=== PATIENT | female | born 1980 | race Caucasian/White ===

== ENCOUNTER 2016-07-04 00:30 | Inpatient (IN) ==
[2016-07-04] MEDS ORDERED: ASPIRIN PO ONE (01:31)
[2016-07-04] MEDS ORDERED: DUONEB (A & A) INH ONE (04:25)
[2016-07-04] MEDS ORDERED: ROCEPHIN 2 GM/NS 2 GM/50 ML IVPB IV ONE (04:26)
[2016-07-04] MEDS ORDERED: ZITHROMAX 500 MG/NS 500 MG/250 ML IVPB IV ONE (04:27)
[2016-07-04 06:08] LABS: MANUAL DIFF NEEDED? NO
[2016-07-04 06:14] LABS: BASO% 0.1 % (0.0-0.8); EOS# 0.05 X1000 (0.0-0.7); EOS% 0.5 % (0.0-10.0); HEMATOCRIT 35.4 % (37.0-47.0); HEMOGLOBIN 11.2 g/dL (12.0-16.0); LYMPH# 1.87 X1000 (1.2-3.4); LYMPH% 19.6 % (20.5-51.1); MCHC 31.6 g/dL (33-37); MCV 88.5 FL (81-99); MONO# 0.59 X1000 (0.11-0.59); MONO% 6.2 % (1.7-9.3); MPV 12.1 FL (7.4-10.4); NEUT% 73.6 % (42.2-75.2); PLT 191 X1000 (130-400)
[2016-07-04 06:39] LABS: AGAP 15; ALBUMIN 3.6 g/dL (3.5-5.0); ALKALINE PHOSPHATASE 114 U/L (32-104); BUN 10 mg/dL (8-22); CALCIUM 8.7 mg/dL (8.8-10.2); CHLORIDE 101 mmol/L (98-107); COSMO 276; GOT 19 U/L (10-30); GPT 15 U/L (10-36); POTASSIUM 3.1 mmol/L (3.5-5.1); SODIUM 139 mmol/L (136-145); TCO2 23 mmol/L (25-35); TOTAL BILIRUBIN 0.54 mg/dL (0.20-1.00); TOTAL PROTEIN 7.1 g/dL (6.3-8.3)
[2016-07-04] MEDS ORDERED: NS + KCL 20 MEQ 1,000 ML IV ONE (09:10)
--- NOTE | 2016-07-04 09:47 | Diag Imaging Result Document ---
PROCEDURE NAME: CHEST-2 VIEWS - 07/04/2016 FRONTAL AND LATERAL CHEST, TWO VIEWS: COMPARISON: 11/29/2014. FINDINGS: There is a small infiltrate in the right base. The left lung is well expanded and clear. The heart is not enlarged. The vessels are not distended. No pleural effusions. No free air beneath the diaphragm. IMPRESSION: Right basilar pneumonia.
--- NOTE | 2016-07-04 11:54 | HISTORY AND PHYSICAL ---
PRIMARY CARE PHYSICIAN: Dr. Alfaro. CHIEF COMPLAINT: Chest pain, shortness of breath. HISTORY OF PRESENT ILLNESS: Mrs. Urias is a 36-year-old female with a history of morbid obesity, asthma, peripheral vascular disease, DVTs, degenerative disk disease who presents with multiple weeks of shortness of breath and coughing and gasping for air at night. She reports the symptoms have been going on for at least a month where at night she is constantly coughing and gasping for air. She has intermittent chest pain throughout the day which she reports is midsternal, nonradiating, lasting only a few minutes. She is essentially bedbound and/or she is quite immobile, she states because of her degenerative disk disease and her weight. She is really unable to ambulate. She denies any orthopnea, per se, but she does not lie flat. She does report significant dyspnea with exertion but denies any exertional chest pain. She denies any fevers or chills, and she reports a dry cough. She went to med-surg outpatient clinic yesterday and she reports she had an extensive workup which was negative. She comes back today with more shortness of breath, coughing and gasping. In the ER, a chest x-ray was done, and it showed right lower lobe infiltrate. Lab work was largely unremarkable. She did have some mild hypokalemia and anemia. Her O2 sats have been adequate. She is now going to be admitted for further treatment and evaluation. PAST MEDICAL HISTORY: 1. Peripheral vascular disease status post 2 stents in the right leg and 1 in the left. 2. Fibromyalgia. 3. Degenerative disk disease. 4. Right lower extremity DVT. 5. Asthma. She has been using her inhaler greater than 1-5 times a day. 6. Hypothyroidism. 7. Tachycardia. 8. Depression. 9. GERD. 10.Anxiety. 11.Chronic lower extremity edema. SURGICAL HISTORY: She has had weight loss surgery in the past, cholecystectomy , tonsillectomy. SOCIAL HISTORY: The patient denies tobacco, alcohol, or drug use. She has no children. She is on disability. Her fiance is at the bedside. FAMILY HISTORY: Significant for hypertension and diabetes. REVIEW OF SYSTEMS: A 14-point review of systems was obtained, found to be negative with the exception of the HPI. HOME MEDICATIONS: 1. Albuterol HFA 6.7 g inhaled as needed. 2. Xanax 1 mg b.i.d. 3. Eliquis 5 mg b.i.d. 4. Bumex 2 mg daily. 5. Wellbutrin 150 mg daily. 6. Zyrtec 10 mg daily. 7. Vitamin D3 1000 units p.o. daily. 8. Plavix 75 mg daily. 9. Lexapro 20 mg daily. 10. Synthroid 50 mcg daily. 11. Provera 10 mg p.o. b.i.d. 12. Robaxin 500 mg b.i.d. 13. Toprol XL 25 mg daily. 14. Prilosec 40 mg daily. 15. Oxycodone 5 mg q.4 h. as needed. 16. Phenazopyridine Plus one each as needed as directed. 17. Lyrica 100 mg t.i.d. 18. Zanaflex 8 mg at bedtime. 19. Valtrex 500 mg daily. ALLERGIES: NSAIDs, pseudoephedrine, and sulfonamides. PHYSICAL EXAMINATION: VITAL SIGNS: Blood pressure is 141/77, heart rate is 79, respiratory rate is 18 , O2 sat 100% on room air. Temperature is 98.2. GENERAL: This is a morbidly obese female lying in the hospital bed in no acute distress. NEUROLOGIC: She is awake, alert, and oriented, and she follows commands without focal deficits. HEENT: Head is atraumatic and normocephalic. Her pupils are equal, round and reactive to light. Her oral mucosa is dry. NECK: Trachea is midline, no JVD or carotid bruits. CHEST: Clear to auscultation bilaterally, diminished at the bases. CV: Regular rate and rhythm, S1, S2 noted. No murmurs, gallops, clicks, or rubs. GI: Soft, nondistended, nontender, bowel sounds positive. EXTREMITIES: 1+ to 2+ edema bilaterally. Pulses are palpable but diminished. DIAGNOSTIC DATA: Chest x-ray showed right basilar infiltrate. WBC 9.56, hemoglobin 11.2, hematocrit 35.4, platelet count 191. Sodium 139, potassium 3.1, chloride 101, CO2 of 23, anion gap 15, BUN 10, creatinine 0.8, glucose 81, calcium 8.7, alkaline phosphatase 114, albumin 3.6. ASSESSMENT AND PLAN: 1. Atypical pneumonia: Blood cultures have been obtained, and will start Rocephin and azithromycin. Continue breathing treatments and aggressive pulmonary toilet. 2. Chest pain: Atypical. We are going to continue trending her enzymes, check an echocardiogram, continue her Toprol, aspirin, and Plavix. 3. Asthma: She does not seem to be in exacerbation, she is not wheezing so will hold off on steroids for now but will continue breathing treatments and aggressive pulmonary toilet. We also are going to check a CT of the chest. 4. Hypokalemia: Replacement potassium has been ordered. Will check a magnesium and trend her electrolytes daily. 5. Normocytic anemia: Check iron studies and treat accordingly. 6. Chronic pain: Continue all of her home medications, this is stable. 7. Peripheral vascular disease: Chronic and stable, continue home medications. 8. History of DVT: Chronic and stable. Continue Eliquis. 9. Hypothyroidism: We are going to check thyroid functions and continue her Synthroid. 10.Morbid obesity: The patient has been advised on the importance of weight loss, will continue this education daily. 11.DVT prophylaxis provided with her home Eliquis. 12.Further recommendations to follow. Dictated by BRANDIE Keller for Luis Miguel Figueroa MD cc: BRANDIE Keller MD Seen and examined patient and I agree with the evaluation and plan outlined above. LATOYA ZAMORA
[2016-07-04] MEDS ORDERED: PATIENT'S OWN MED PO PRN (12:34)
[2016-07-04] MEDS ORDERED: DUONEB (A & A) INH PRN (12:34)
[2016-07-04] MEDS ORDERED: ROBAXIN PO PRN (12:34)
[2016-07-04 14:21] LABS: HEMOGLOBIN A1C 5.2 % (4.8-6.0)
[2016-07-04 14:24] LABS: IRON SATURATION 14 %; TIBC 280 ug/dL; TOTAL IRON 40 ug/dL (49-151); UNBOUND IRON 240 ug/dL (112-346)
[2016-07-04 14:31] LABS: FREE T4 1.09 ng/dL (0.93-1.70)
--- NOTE | 2016-07-04 14:45 | Diag Imaging Result Document ---
PROCEDURE NAME: CT THORAX W/CONTRAST - 07/04/2016 CT CHEST WITH INTRAVENOUS CONTRAST: TECHNIQUE: Dose reduction protocol. FINDINGS: There are small patchy infiltrates bilaterally. These are most pronounced on the right. No area of consolidation. No bronchiectasis. I do not identify a lung mass. No pleural effusions. The heart is mildly prominent. No thoracic aortic aneurysm or dissection. There are mildly prominent mediastinal lymph nodes. The patient has had a gastric bypass procedure and there is a small hiatal hernia. The gallbladder has been removed. There is fatty infiltration of the liver. IMPRESSION: 1. Small patchy bilateral infiltrates. 2. Mildly prominent heart. 3. Gastric bypass and cholecystectomy as well as fatty infiltration of the liver. A preliminary report was given at 1:56 p.m.
[2016-07-04] MEDS: PERCOCET-5 PO PRN ×2 (15:21→21:56)
[2016-07-04] MEDS: LYRICA PO SCH ×2 (15:21→19:26)
[2016-07-04] MEDS: DUONEB (A & A) INH SCH ×3 (16:09→22:34)
[2016-07-04] MEDS ORDERED: ZANAFLEX PO SCH (21:00)
[2016-07-04] MEDS ORDERED: MEDROXYPROGESTERONE ACET PO SCH (21:00)
[2016-07-04] MEDS: XANAX PO SCH (21:41)
[2016-07-04] MEDS: ELIQUIS PO SCH (21:41)
[2016-07-05] MEDS: DUONEB (A & A) INH SCH (03:49)
[2016-07-05] MEDS: PERCOCET-5 PO PRN (04:08)
[2016-07-05] MEDS ORDERED: ROCEPHIN 1 GM/NS 1 GM/50 ML IVPB IV SCH (05:00)
[2016-07-05] MEDS ORDERED: ZITHROMAX 500 MG/NS 500 MG/250 ML IVPB IV SCH (06:00)
[2016-07-05] MEDS ORDERED: SYNTHROID PO SCH (07:00)
[2016-07-05] MEDS ORDERED: PRILOSEC PO SCH (07:00)
[2016-07-05 07:38] LABS: HEMATOCRIT 32.5 % (37.0-47.0); HEMOGLOBIN 9.8 g/dL (12.0-16.0); MCH 27.4 PG (27-31); MCHC 30.2 g/dL (33-37); MCV 90.8 FL (81-99); MPV 11.8 FL (7.4-10.4); RBC 3.58 XMIL (4.2-5.4)
[2016-07-05 07:56] VITALS: BP 114/55
[2016-07-05 08:01] LABS: AGAP 14; BUN 6 mg/dL (8-22); CALCIUM 8.4 mg/dL (8.8-10.2); CHLORIDE 105 mmol/L (98-107); COSMO 278; HDL 61 mg/dL (45-65); LDL 74 mg/dL; POTASSIUM 3.4 mmol/L (3.5-5.1); SODIUM 141 mmol/L (136-145); TCO2 22 mmol/L (25-35); TRIGLYCERIDES 80 mg/dL (35-135); VLDL 16 mg/dL
[2016-07-05] MEDS: XANAX PO SCH (08:50)
[2016-07-05] MEDS: LYRICA PO SCH (08:51)
[2016-07-05] MEDS: ELIQUIS PO SCH (08:52)
[2016-07-05] MEDS ORDERED: PROVERA PO SCH (09:00)
[2016-07-05] MEDS ORDERED: LEXAPRO PO SCH (09:00)
[2016-07-05] MEDS ORDERED: FERROUS SULFATE PO SCH (09:00)
[2016-07-05] MEDS ORDERED: BUMEX PO SCH (09:00)
[2016-07-05] MEDS ORDERED: ZYRTEC PO SCH (09:00)
[2016-07-05] MEDS ORDERED: VITAMIN B-12 PO SCH (09:00)
[2016-07-05] MEDS ORDERED: TOPROL XL PO SCH (09:00)
[2016-07-05] MEDS ORDERED: VALTREX PO SCH (09:00)
[2016-07-05] MEDS ORDERED: VITAMIN D PO SCH (09:00)
[2016-07-05] MEDS ORDERED: WELLBUTRIN XL PO SCH (09:00)
--- NOTE | 2016-07-05 10:23 | ECHO REPORT ---
ORDER DATE: 07/04/2016 ECHOCARDIOGRAM: MEASUREMENTS: Left ventricular end-diastolic diameter 4.9, end-systolic diameter 3.4, septal thickness 0.8, posterior wall thickness 1.1, left atrium 4.6, aortic root 2.7. SUMMARY: 1. Fair quality study. 2. Aortic, mitral, tricuspid and pulmonic valves are without structural abnormality with trace mitral regurgitation and trace tricuspid regurgitation. The aortic root is normal size. 3. Normal left ventricular dimensions demonstrated. Estimated left ventricular ejection fraction appears to be approximately 60%. No regional wall motion abnormalities are evident. Left atrium, right atrium, right ventricle appear normal in size on 2-dimensional images. Right ventricular systolic function appears normal. 4. No pericardial effusion. 5. Appearance of inferior vena cava suggests normal central venous pressure. CONCLUSION: 1. No significant valvular abnormalities. 2. Normal left ventricular function without wall motion abnormality evident. cc: MD Wm Martin CRNP
[2016-07-05 11:59] LABS: INR 1.03; PROTIME 10.8 Seconds (9.2-11.7)
--- NOTE | 2016-07-06 05:53 | DISCHARGE SUMMARY ---
ADMISSION DATE: 07/04/2016 DISCHARGE DATE: 07/05/2016 DISPOSITION: Home. FOLLOWUP: 1. Dr. Alfaro. 2. GI doctor. CONSULTATION DURING THIS ADMISSION: None. IMAGING STUDIES OF SIGNIFICANCE: A CT scan of the chest was done which shows small patchy bilateral infiltrates, mildly predominant heart. Gastric bypass. Fatty infiltration of the liver. An echocardiogram was done which shows non-significant valvular abnormality. Normal left ventricular function without wall motion abnormality. ADMISSION DIAGNOSES: 1. Atypical pneumonia. 2. Chest pain. 3. Asthma. 4. Normocytic anemia. DISCHARGE DIAGNOSES: 1. Atypical pneumonia, improved. 2. Mild dehydration, improved. 3. History of peripheral vascular disease. 4. Hypothyroidism. 5. Morbid obesity. 6. History of gastric bypass. 7. Iron deficiency anemia. 8. B12 deficiency. DISCHARGE MEDICATIONS: 1. Omeprazole 40 mg daily. 2. Levothyroxine 50 mcg daily. 3. Alprazolam. 4. OxyContin. 5. Vitamin D 1000 units p.o. daily, 6. Azithromycin 250 p.o. daily. 7. Cyanocobalamin 1000 mcg p.o. daily. 8. Apixaban 5 mg b.i.d. 9. Clopidogrel 75 mg daily. PRESENTING COMPLAINT: Chest pain and shortness of breath. HISTORY OF PRESENT COMPLAINT: Ms. Urias is a 36-year-old female with extensive past medical history including peripheral vascular disease, morbid obesity, multiple surgeries for weight loss, and asthma. The patient presented because of ongoing shortness of breath, which has not resolved at home on medications. She came in, was evaluated, and CT scan did show patchy infiltration of the lung. Patient was admitted for atypical pneumonia in the setting of asthma, mild exacerbation. During the hospital stay, Ms. Urias was treated with IV antibiotics, gently hydrated, and nebulization for adequate pulmonary toilette. She responded very well to therapy. Today, she referred to be doing a whole lot better. Her echocardiogram has been reviewed. There was no abnormality. The patient is clinically stable. We therefore think that she is okay to go home and finish up her antibiotics p.o. for a total of 7 days. At the time of discharge, there is not any pending labs. Patient is advised to followup with her primary care doctor and her GI doctor. Significantly, the patient was found to be iron deficient and also B12 deficient, which I think it is all related to her weight loss surgery. We will give her a prescription to refill this, but she needs to follow up with her GI to make sure she does not have any other micro-nutrient deficiencies. At the time of discharge, there is not any pending labs or imaging studies. All her vitals are stable. Her lab works have been reviewed and there is no concern. The patient is going to be discharged in a very stable condition. TIME SPENT FOR DISCHARGE: Was 34 minutes. cc: Luis Miguel Figueroa MD
--- NOTE | 2016-07-06 06:29 | EKG Report ---
Test Performed on : 07/04/2016 00:52:40 AM Test Reason : Cough sob Blood Pressure : / mmHG Vent. Rate : 087 BPM Atrial Rate : 087 BPM P-R Int : 120 ms QRS Dur : 086 ms QT Int : 364 ms P-R-T Axes : 062 034 014 degrees QTc Int : 438 ms Normal sinus rhythm. Normal ECG When compared with ECG of 04-JUL-2016 00:49, (Unconfirmed) Sinus rhythm. has replaced Junctional rhythm. Unconfirmed Result
[2016-07-06] MEDS ORDERED: ZITHROMAX PO SCH (09:00)
[2016-07-06 10:16] LABS: HEPATITIS PROFILE ACUTE SEE COMMENTS
[2016-07-07] MEDS ORDERED: PLAVIX PO SCH (09:00)
--- NOTE | 2016-07-08 17:51 | ED EKG INTERP ---
This chart was entered by Tremaine Ca Scribe, acting as scribe for Damion Casey MD. EKG Interpretation - EKG Time of EKG reading by physician:: 00:52 EKG Read and Signed by:: Damion Casey EKG Interpretation (*Must complete 3 of following elements*): Normal Rate: 87 Rhythm: NSR This chart was documented by the indicated scribe, (Tremaine Ca Scribe) and accurately reflects the services I performed and decisions made by meJacinto Robert H., MD, as attested by the provider's signature.
--- NOTE | 2016-07-08 17:52 | PROVIDER DOCUMENTATION ---
This chart was entered by Tremaine Ca Scribe, acting as scribe for Damion Casey MD. HPI-Respiratory General <Yony Carter Arabella - Last Filed: 07/04/16 09:11> - General Source: patient - History of Present Illness-Resp Quality of Pain: reports: none Severity in ED: reports: moderate Onset/Duration: reports: 1-3 hours ago Timing: reports: improving Cough Quality/Degree: reports: no cough Associated Symptoms: reports: shortness of breath, short of breath. denies: chest pain/soreness, cough, dizziness, earache, facial pain, fever/chills, flu- like symptoms, headache, heart racing, hurts to breathe, hyperventilating, lightheadedness, muscle/bodyaches, nasal congestion, nasal drainage, sinus pain , sore throat, sweaty, wheezing Similar Symptoms Previously?: No Recently seen or treated by another doctor?: No <Damion Casey - Last Filed: 07/08/16 17:51> - General Chief Complaint: Asthma Attack Stated Complaint: COUGH SX Time Seen by Provider: 07/04/16 04:03 Allergies/Adverse Reactions: Patient Allergies Allergy/AdvReac Type Severity Reaction Status Date / Time NSAIDS (Non-Steroidal Allergy Unknown Verified 07/04/16 09:17 Anti-Inflamma pseudoephedrine Allergy Unknown Verified 07/04/16 09:17 Sulfa (Sulfonamide Allergy RASH Verified 07/04/16 09:17 Antibiotics) Home Medications: Home Medication List Medication Instructions Recorded Confirmed Last Taken Type Albuterol Sulfate [Proventil Hfa] 6.7 gm IH PRN PRN 07/04/16 07/04/16 07/03/16 History Alprazolam [Xanax] 1 mg PO BID 07/04/16 07/04/16 07/03/16 History Apixaban [Eliquis] 5 mg PO BID 07/04/16 07/04/16 07/03/16 History Bumetanide 2 mg PO DAILY 07/04/16 07/04/16 07/03/16 History Bupropion X.l. [Wellbutrin Xl] 150 mg PO DAILY 07/04/16 07/04/16 07/03/16 History Cetirizine HCl [Zyrtec] 10 mg PO DAILY 07/04/16 07/04/16 07/03/16 History Cholecalciferol (Vitamin D3) 1,000 unit PO DAILY 07/04/16 07/04/16 07/03/16 History [Vitamin D3] Clopidogrel Bisulfate [Plavix] 75 mg PO DIRECTED 07/04/16 07/04/16 07/03/16 History Escitalopram Oxalate [Lexapro] 20 mg PO DAILY 07/04/16 07/04/16 07/03/16 History Hydroxyzine 25 mg PO DAILY 07/04/16 07/04/16 07/03/16 21:00 History 25 mg Levothyroxine Sodium [Synthroid] 50 mcg PO DAILY 07/04/16 07/04/16 07/03/16 History Medroxyprogesterone Acet [Provera] 10 mg PO DAILY 07/04/16 07/04/16 07/03/16 09: 00 History Methocarbamol [Robaxin] 500 mg PO BID PRN 07/04/16 07/04/16 07/03/16 History Metoprolol Succinate E.r. [Toprol 25 mg PO DAILY 07/04/16 07/04/16 07/03/16 History Xl] Omeprazole [Prilosec] 40 mg PO DAILY 07/04/16 07/04/16 07/03/16 History Oxycodone/APAP 5 mg/325 mg 1 each PO Q4H PRN PRN 07/04/16 07/04/16 07/03/16 History [Percocet-5] Phenazopy HCl/Hyoscy/Butabarb 1 each PO PRN PRN 07/04/16 07/04/16 07/03/16 History [Phenazopyridine Plus Tablet] Pregabalin [Lyrica] 100 mg PO TID 07/04/16 07/04/16 07/03/16 History Tizanidine HCl [Zanaflex] 8 mg PO QHS 07/04/16 07/04/16 07/03/16 History Valacyclovir HCl [Valtrex] 500 mg PO DAILY 07/04/16 07/04/16 07/03/16 History Azithromycin [Zithromax] 250 mg PO DAILY #7 tablet 07/05/16 Unknown Rx Cyanocobalamin [Vitamin B-12] 1,000 microgm PO DAILY #60 tablet 07/05/16 Unknown Rx Ferrous Sulfate 325 mg PO BID #120 tablet 07/05/16 Unknown Rx - History of Present Illness-Resp Nature of Presenting Problem: Pt is a 36 yof who presents to ER with CC of difficulty breathing. Pt reports that she was woken up last night by her because she was "gasping for air." Pt is obese and reports that she had a gastric sleeve placed in 2012, lost more than 100 pounds, but has gained it all back. Pt also has hx of asthma. (Tremaine Ca) Pt is a 36 yof who presents to ER with CC of difficulty breathing. Pt reports that she was woken up last night by her because she was "gasping for air." Pt is obese and reports that she had a gastric sleeve placed in 2012, lost more than 100 pounds, but has gained it all back. Pt also has hx of asthma. (Damion Casey) Review of Systems - Adult - REVIEW OF SYSTEMS - ADULT Constitutional: reports: no symptoms reported <Yony Carter I - Last Filed: 07/04/16 09:11> - REVIEW OF SYSTEMS - ADULT Constitutional: denies: chills, fever, fatique, night sweats, weight gain, weight loss Eyes: reports: no symptoms reported Ears, Nose, Mouth & Throat: reports: no symptoms reported Cardiovascular: reports: chest pain. denies: edema, heart murmur, irregular heart rate, orthopnea, palpitations, poor circulation, PND, syncope Respiratory: reports: cough, shortness of breath. denies: chronic cough, dyspnea on exertion, excessive sputum production, hemoptysis, pleurisy, wheezing Gastrointestinal: reports: no symptoms reported Genitourinary: reports: no symptoms reported Musculoskeletal: reports: no symptoms reported Integumentary: reports: no symptoms reported Neurological: reports: no symptoms reported Psychiatric: reports: no symptoms reported Endocrine: reports: no symptoms reported Hematologic/Lymphatic: reports: no symptoms reported Allergic/Immunologic: reports: no symptoms reported All Other Systems: Reviewed and Negative <Damion Casey - Last Filed: 07/08/16 17:51> Past History - Adult - PAST MEDICAL HISTORY-ADULT Review of Records: reports: Old Records Reviewed, Nursing Assessment Review, Medications Reviewed, Social history reviewed & non-contributory. <Yony Carter I - Last Filed: 07/04/16 09:11> - PAST MEDICAL HISTORY-ADULT Review of Records: reports: Nursing Assessment Review, Medications Reviewed Cardiovascular: reports: blood clots, PVD Respiratory: reports: asthma Gastrointestinal: reports: GERD Obstetrical/Gynecological: reports: ovarian cysts Genitourinary: reports: chronic UTI's, other (cystitis) Musculoskeletal: reports: fibromyalgia Psychiatric: reports: anxiety Endocrine/Immune: reports: thyroid disorder - PRIOR SURGERIES/PROCEDURES Surgical/Procedure History: reports: cholecystectomy, other (IVC filter) - IMMUNIZATION STATUS Childhood Immunizations: See Nurse Assessment Flu Vaccine: See Nurse Assessment - FAMILY HISTORY Family History: reviewed, not pertinent <Damion Casey - Last Filed: 07/08/16 17:51> Physical Exam-General - PHYSICAL EXAM-ADULT Initial Vital Signs Reviewed: Yes - CONSTITUTIONAL General Appearance: appears well <Yony Carter I - Last Filed: 07/04/16 09:11> - PHYSICAL EXAM-ADULT Initial Vital Signs Reviewed: Yes - CONSTITUTIONAL General Appearance: appears well, alert, moderate distress, obese. negative: no apparent distress, mild distress - EYES Eyes: PERRL/EOMI (pupils dilated), pink conjunctivae, fundi clear, no AV nicking - HEAD, EARS, NOSE, MOUTH & THROAT HENMT: normocephalic/atraumatic, moist mucous membranes, normal ENT inspection, TMs normal, pharynx normal. negative: pharyngeal erythema, tonsillar exudate, TM abnormal - NECK Neck: non-tender, full range of motion, supple, normal inspection. negative: C- spine tenderness, limited range of motion, lymphadenopathy - RESPIRATORY Respiratory: chest non-tender, no pleuratic chest pain, no respiratory distress , no accessory muscle use, crackles (R base). negative: lungs clear, normal breath sounds - CARDIOVASCULAR Cardiovascular: normal peripheral pulses, regular rate, rhythm. negative: bradycardia, tachycardia, irregularly irregular - GASTROINTESTINAL (ABDOMEN) Abdominal Exam: normal bowel sounds, non tender, soft, no organomegaly, no pulsatile mass. negative: abnormal bowel sounds, distended, tenderness - MUSCULOSKELETAL Extremity: normal range of motion, non-tender, normal gait, normal inspection, no pedal edema, no calf tenderness, normal capillary refill. negative: deformity, erythema, inflammation, swelling, tenderness - SKIN Integumentary: normal color, normal turgor, warm/dry. negative: abrasion(s), diaphoresis, ecchymosis, erythema, laceration(s), swelling, tenderness, warm - NEUROLOGIC Neurologic: behavioral interventionist II-XII nml as tested, grossly normal, no motor/sensory deficits . negative: facial droop, focal weakness, motor weakness, sensory deficit - PSYCHIATRIC Psych/Mental Status: normal thought content, normal thought process, oriented x 3, depressed affect. negative: normal mood/affect <Damion Casey - Last Filed: 07/08/16 17:51> Progress - PLAN OF CARE/RESULTS Result Diagrams: 07/04/16 05:15 07/04/16 05:15 <Yony Carter I - Last Filed: 07/04/16 09:11> - PLAN OF CARE/RESULTS Result Diagrams: 07/05/16 07:07 07/05/16 07:07 - XRAY 1 XRAY: Bilateral XRAY Study: Chest Impression: See EMR Report XRAY Interpretation: R lung infiltrate <Damion Casey - Last Filed: 07/08/16 17:51> - PLAN OF CARE/RESULTS Progress/Plan/Lab Results: Orders Category Date Time Status Admit - [facility] - [facility] Routine AdmDCTranf 07/04/16 12:34 Ordered Activity - Up with Assistance ORDERED Care 07/04/16 12:34 Active Currently Rec Anticoagulation [QM] ROUTINE Care 07/04/16 12:34 Active DVT/PE Risk Assess/Protocol [QM] ORDERED Care 07/04/16 12:34 Active Elevate Head of Bed DIRECTED Care 07/04/16 12:34 Active Encourage Fluids DIRECTED Care 07/04/16 12:34 Active Intake and Output-Strict Q 8-HR ASSESS Care 07/04/16 12:34 Active Nursing- Assist w/ IS as order ORDERED Care 07/04/16 12:34 Active Resuscitation Status Routine Care 07/04/16 10:16 Ordered Turn, Cough and Deep Breathe Q2HR Care 07/04/16 12:34 Active Vital Signs Order Q 4-HR ASSESS Care 07/04/16 12:34 Active CHEST-2 VIEWS [RAD] Stat Exams 07/04/16 01:[address] THORAX W/CONTRAST [CT] Routine Exams 07/04/16 12:14 Completed A1C HGB W EST AVG GLUCOSE [CHEM] Timed Lab 07/04/16 13:40 Completed BASIC METABOLIC PANEL [CHEM] DAILY Lab 07/05/16 07:07 Completed BLOOD CULTURE [BLDCUL] Stat Lab 07/04/16 05:15 Results CBC WITH ELECTRONIC DIFF [HEME] Stat Lab 07/04/16 05:15 Completed CBC WITH NO DIFF [HEME] DAILY Lab 07/05/16 07:07 Completed COMPREHENSIVE METABOLIC PANEL [CHEM] Stat Lab 07/04/16 05:15 Completed FERRITIN Timed Lab 07/04/16 13:40 Completed FOLATE Timed Lab 07/04/16 13:40 Completed FREE T4 Timed Lab 07/04/16 13:40 Completed HEPATITIS PROFILE [HH] Timed Lab 07/04/16 13:40 Completed LIPID PROFILE W/CALC LDL [LIPIDS] Routine Lab 07/05/16 07:07 Completed MAGNESIUM [CHEM] Timed Lab 07/04/16 13:40 Completed PRO B-NATRIURETIC PEPTIDE Timed Lab 07/04/16 05:15 Completed PROTIME WITH INR [COAG] Routine Lab 07/05/16 11:25 Completed TROPONIN T Q8HR Lab 07/04/16 13:40 Completed TROPONIN T Q8HR Lab 07/04/16 13:40 Completed TSH Timed Lab 07/04/16 13:40 Completed UIBC W TOTAL IRON [CHEM] Timed Lab 07/04/16 13:40 Completed VITAMIN B12 Timed Lab 07/04/16 13:40 Completed Albuterol 2.5MG/Ipratrop 0.5MG [Duoneb (A & A)] Med 07/04/16 04:25 Discontinued 3 ml INH NOW ONE Albuterol 2.5MG/Ipratrop 0.5MG [Duoneb (A & A)] Med 07/04/16 12:34 Discontinued 3 ml INH Q2H PRN PRN Albuterol 2.5MG/Ipratrop 0.5MG [Duoneb (A & A)] Med 07/04/16 12:34 Discontinued 3 ml INH RTQ4H Alprazolam [Xanax] Med 07/04/16 21:00 Discontinued 1 mg PO BID Apixaban [Eliquis] Med 07/04/16 21:00 Discontinued 5 mg PO BID Aspirin Med 07/04/16 01:31 Discontinued 325 mg PO NOW ONE Azithromycin 500 mg/Ns [Zithromax 500 mg/Ns] Med 07/04/16 04:27 Discontinued 500 mg in 250 ml IV NOW Azithromycin 500 mg/Ns [Zithromax 500 mg/Ns] Med 07/05/16 06:00 Discontinued 500 mg in 250 ml IV Q24H Bumetanide [Bumex] Med 07/05/16 09:00 Discontinued 2 mg PO DAILY Bupropion X.l. [Wellbutrin Xl] Med 07/05/16 09:00 Discontinued 150 mg PO DAILY CefTRIAXONE 1 GM/NS [Rocephin 1 gm/Ns] Med 07/05/16 05:00 Discontinued 1 gm in 50 ml IV Q24H CefTRIAXONE 2 GM/NS [Rocephin 2 gm/Ns] Med 07/04/16 04:26 Discontinued 2 gm in 50 ml IV NOW Cetirizine [Zyrtec] Med 07/05/16 09:00 Discontinued 10 mg PO DAILY Cholecalciferol (Vit D3) [Vitamin D] Med 07/05/16 09:00 Discontinued 1,000 unit PO DAILY Clopidogrel [Plavix] Med 07/07/16 09:00 Discontinued 75 mg PO TuTh@0900 Escitalopram [Lexapro] Med 07/05/16 09:00 Discontinued 20 mg PO DAILY Levothyroxine [Synthroid] Med 07/05/16 07:00 Discontinued 50 microgm PO DAILY@0700 Medroxyprogesterone Acet [Provera] Med 07/04/16 21:00 Discontinued 10 mg PO BID Methocarbamol [Robaxin] Med 07/04/16 12:34 Discontinued 500 mg PO BID PRN PRN Metoprolol Succinate E.r. [Toprol Xl] Med 07/05/16 09:00 Discontinued 25 mg PO DAILY Ns + KCl 20 Meq 1,000 ml Med 07/04/16 09:10 Discontinued IV Wide Open Omeprazole [Prilosec] Med 07/05/16 07:00 Discontinued 40 mg PO DAILY@0700 Oxycodone/APAP 5 mg/325 mg [Percocet-5] Med 07/04/16 12:34 Discontinued 1 each PO Q4H PRN PRN Patient's Own Med Med 07/04/16 12:34 Discontinued 1 each PO PRN PRN Pregabalin [Lyrica] Med 07/04/16 13:00 Discontinued 100 mg PO TID Tizanidine [Zanaflex] Med 07/04/16 21:00 Discontinued 8 mg PO QHS Valacyclovir [Valtrex] Med 07/05/16 09:00 Discontinued 500 mg PO DAILY Aerosol Treatments Routine Ot 07/04/16 04:25 Completed Aerosol Treatments Routine Ot 07/04/16 12:34 Completed Aerosol Treatments Routine Ot 07/04/16 12:34 Completed Aerosol Treatments Stat Ot 07/04/16 04:25 Completed Aerosol Treatments Stat Ot 07/04/16 12:34 Completed Incentive Spirometer Routine Ot 07/04/16 12:34 Completed Oxygen Device Routine Ot 07/04/16 12:34 Completed Pulse Oximetry Routine Ot 07/04/16 12:34 Completed Pulse Oximetry Stat Ot 07/04/16 01:32 Completed Telemetry [OM.EQ] Routine Ot 07/04/16 12:34 Active Echo Spec/Color Dop W/O Contra Routine Ther 07/04/16 10:22 Draft Transfer/Admit Order [TRANSFER] Routine Transfer 07/04/16 09:13 Completed Departure - Departure Time of Disposition Decision: 09:11 Certified Medical Emergency: Emergent <Yony Carter I - Last Filed: 07/04/16 09:11> - Departure Time of Disposition Decision: 09:11 Certified Medical Emergency: Emergent - Critical Care Note This patient required my direct personal management.: No <Damion Casey - Last Filed: 07/08/16 17:51> - Departure DIAGNOSIS: Pneumonia Disposition: ADMITTED INPATIENT 09 Condition: Stable Attestation - Physician/ FELISHA Attestation Patient care was provided by Advanced Practice Provider:: Yes Advanced Practice Provider documentation review:: The Mid-level provider documentation, treatment plan and medical decision making was reviewed by the physician who agrees with all treatment and medical decision making by the MLP. The physician spent face to face time with patient:: Yes Advanced Practice Provider documentation review:: The physician spent face to face time with this patient and agrees with all MLP documentation, treatment, and medical decision making by the MLP. See provider notes for further information. <Yony Carter I - Last Filed: 07/04/16 09:11> This chart was documented by the indicated scribe, (Tremaine Ca, [place]) and accurately reflects the services I performed and decisions made by me, Damion Casey MD, as attested by the provider's signature.
== END 2016-07-05 14:28 | disposition home or self-care (01) ==
LOC: ED 00:30 → 3N 11:28
PROVIDERS: ATTEND Internal Medicine